=== PATIENT | female | born 1955 | race Caucasian/White ===

== ENCOUNTER → 2019-03-25 11:14 | Outpatient (CLI) | payer MEDICARE, SELFPAY ==
--- NOTE | ~2019-03-25 | MM_ITS ---
EXAMINATION: MM screening herbert BI w loco HISTORY: Screening mammogram, family history of breast cancer in her mother. TECHNIQUE: Craniocaudal and mediolateral oblique 3-D tomosynthesis images were obtained and synthetic 2-D images were generated. CAD analysis was submitted and interpreted. COMPARISON: 03/08/2018, 03/13/2017, 03/05/2016, 02/18/2015 BREAST PARENCHYMAL COMPOSITION: There are scattered areas of fibroglandular density. FINDINGS: Scattered benign-appearing calcifications are present. There is no evidence of suspicious m ass, calcification, or architectural distortion to suggest malignancy in either breast. There has bee n no suspicious interval change. IMPRESSION: 1. No mammographic evidence of malignancy. 2. Recommend routine screening mammography in one year. BI-RADS Category 2: Benign finding(s). Reviewed, dictated and finalized at location A. T SHOP HELPER
== END ==
PROVIDERS: Visit Provider Obstetrics & Gynecology
DX: Z12.31 Encounter for screening mammogram for malignant neoplasm of breast (principal)
CPT/HCPCS: 77063; 77067

== ENCOUNTER → 2020-06-19 11:07 | Outpatient (CLI) | payer MEDICARE, SELFPAY ==
--- NOTE | ~2020-06-19 | MM_ITS ---
EXAMINATION: MM screening herbert BI w loco HISTORY: Screening TECHNIQUE: Craniocaudal and mediolateral oblique 3-D tomosynthesis images were obtained and synthetic 2-D images were generated. CAD analysis was submitted and interpreted. COMPARISON: Comparison to multiple prior studies sequentially, with oldest reviewed study dated 01/18. BREAST PARENCHYMAL COMPOSITION: There are scattered areas of fibroglandular density. FINDINGS: There is no evidence of suspicious mass, calcification, or architectural distortion to sugg est malignancy in either breast. There has been no suspicious interval change. IMPRESSION: 1. No mammographic evidence of malignancy. 2. Recommend routine screening mammography in one year. BI-RADS Category 1: Negative Reviewed, dictated and finalized at location A.
== END ==
PROVIDERS: Visit Provider Obstetrics & Gynecology
DX: Z12.31 Encounter for screening mammogram for malignant neoplasm of breast (principal)
CPT/HCPCS: 77063; 77067

== ENCOUNTER 2021-02-07 10:52 | Outpatient (CLI) | payer MEDICARE, SELFPAY ==
--- NOTE | ~2021-02-07 | XR_ITS ---
XR hip LT min 2V 02/07/2021 11:19 Indication: Left hip pain Procedure: 2 views left hip Comparison: No prior studies for comparison. Findings: Mild osteoarthritis of the left hip. Sacral foramen are symmetric. No acute fracture or tra umatic malalignment. No significant soft tissue abnormality. Impression: 1: Mild osteoarthritis of the left hip. Reviewed, dictated and finalized at location A. RTMENT CHAIR Impression: 1: Mild osteoarthritis of the left hip.
--- NOTE | ~2021-02-07 | XR_ITS ---
XR lumbar spine 2-3V DATE: 02/07/2021 11:19 INDICATION: Back pain. No known injury. TECHNIQUE: AP, lateral, coned lateral lumbosacral views COMPARISON: 06/30/2012 lumbar spine FINDINGS: Surgical clips are again noted at the left anterior lumbar spine at L3-4. There is minimal dextroscoliosis of the lumbar spine. There is mild to moderate degenerative disc disease at L1-2 and L3-4, moderate to moderately severe d egenerative disease at L2-3, mild degenerative disc disease at L4-5. There is severe degenerative disease at L5-S1. No fracture or bone destruction. The lumbar pedicles are intact. Sacral iliac joints are intact. IMPRESSION: Multilevel degenerative disc disease, most pronounced at L5-S1 Reviewed, dictated and finalized at location B. TRICAL ACCESSORIES ASSEMBLER
== END 2021-02-07 10:53 | disposition home or self-care (01) ==
PROVIDERS: PCP Internal Medicine; Visit Provider Internal Medicine
DX: M25.552 Pain in left hip (principal); M54.9 Dorsalgia, unspecified; M51.37 Other intervertebral disc degeneration, lumbosacral region; M16.12 Unilateral primary osteoarthritis, left hip
CPT/HCPCS: 72100; 73502

== ENCOUNTER → 2021-07-19 12:28 | Outpatient (CLI) | payer MEDICARE, SELFPAY ==
--- NOTE | ~2021-07-19 | MM_ITS ---
EXAMINATION: MM screening herbert BI w loco HISTORY: Screening mammogram TECHNIQUE: Craniocaudal and mediolateral oblique 3-D tomosynthesis images were obtained and synthetic 2-D images were generated. CAD analysis was submitted and interpreted. COMPARISON: 06/19/2020, , 03/16/2018 bilateral screening mammogram examinations BREAST PARENCHYMAL COMPOSITION: There are scattered areas of fibroglandular density. FINDINGS: There is no evidence of suspicious mass, calcification, or architectural distortion to sugg est malignancy in either breast. There has been no suspicious interval change. IMPRESSION: 1. No mammographic evidence of malignancy. 2. Recommend routine screening mammography in one year. BI-RADS Category 1: Negative Reviewed, dictated and finalized at location A.
== END ==
PROVIDERS: PCP Obstetrics & Gynecology; Visit Provider Obstetrics & Gynecology
DX: Z12.31 Encounter for screening mammogram for malignant neoplasm of breast (principal)
CPT/HCPCS: 77063; 77067

== ENCOUNTER 2022-01-01 00:12 | Day surgery (SDC) | payer MEDICARE, SELFPAY ==
[2021-12-24 13:35] VITALS: BMI 26.7
[2022-01-01 08:34] VITALS: BP 132/75; PULSE 92; RESP 18; TEMP 36.6; O2SAT 99; BMI 26.7
[2022-01-01] MEDS: LACTATED RINGERS 1,000 ML 150 ML IV CONT (08:51)
[2022-01-01 08:55] LABS: Glucose Point of Care 142 mg/dl (65-105)
--- NOTE | 2022-01-01 08:55 | WPDANESEPPF ---
Anes - Initial Pre Proc Eval Procedure: Operation Date: 01/01/22 09:45 Proposed Procedures p Screening Colonoscopy - Ruperto Barahona MD Date/Time: 01/01/22 08:55 Surgeon: Ruperto Barahona MD Pre Op Diagnosis: hx colon polyp, fam hx colon CA Patient Data Age: 66 Gender: F Height: 1.7 m Weight: 77.5 kg Last Vital Signs Temp 97.8 F 01/01/22 08:34 Pulse 92 01/01/22 08:34 Resp 18 01/01/22 08:34 BP 132/75 01/01/22 08:34 Pulse Ox 99 01/01/22 08:34 O2 Del Method Room Air 01/01/22 08:34 Allergies Allergy/AdvReac Type Severity Reaction Status Date / Time Cephalosporins Allergy Mild Unknown Verified 01/01/22 08:33 Sulfa (Sulfonamide Allergy Mild Unknown Verified 01/01/22 08:33 Antibiotics) cephalexin Allergy Unknown unknown Verified 01/01/22 08:33 clarithromycin Allergy Unknown Unknown Verified 01/01/22 08:33 sulfamethizole Allergy Unknown Unknown Verified 01/01/22 08:33 sulfamethoxazole Allergy Unknown Unknown Verified 01/01/22 08:33 trimethoprim Allergy Unknown unknown Verified 01/01/22 08:33 vancomycin Allergy Unknown Unknown Verified 01/01/22 08:33 CEFOXITIN SODIUM Allergy Unknown Itching Uncoded 12/24/21 13:32 CEPHALEXIN MONOHYDRATE Allergy Unknown Itching Uncoded 12/24/21 13:32 Home Medications Medication Instructions Recorded Confirmed Type cholecalciferol (vitamin D3) 25 1,000 unit PO DAILY 01/20/19 01/01/22 History mcg (1,000 unit) capsule lancets (Microlet Lancet) #100 ea 10/24/20 01/01/22 Rx blood sugar diagnostic (Contour #50 ea 04/18/21 01/01/22 Rx Next Test Strips) atorvastatin 10 mg tablet 10 mg PO DAILY #90 tabs 12/26/21 01/01/22 Rx felodipine 10 mg tablet,extended 10 mg PO DAILY #90 tabs 12/26/21 01/01/22 Rx release 24 hr glimepiride 2 mg tablet 2 mg PO QAM #90 tabs 12/26/21 01/01/22 Rx lisinopril 20 1 tablet PO DAILY #90 tabs 12/26/21 01/01/22 Rx mg-hydrochlorothiazide 12.5 mg tablet metformin 500 mg tablet 500 mg PO BID #180 tabs 12/26/21 01/01/22 Rx Patient hx anesthesia problems: none Family hx anesthesia problems: none Results Review: All pre-operative results and documents have been reviewed as part of the pre-operative evaluation. [facility] Family History Family History Father Carcinoma of colon Family history of lung cancer, Onset Age: 59 Mother Family history of malignant neoplasm of breast in first degree relative Patient's mother is Other Hypertension Social History Social History Smoking status: Never smoker Second hand tobacco smoke exposure: No Alcohol intake: current Substance use type: does not use Living arrangements: with family Spiritual care concerns: No Anes - Eval Final PreProcedure Day of Procedure 01/01/22 08:55 Patient weight: normal Heart: regular rate and rhythm Lungs: clear to auscultation Airway: Mallampati scale class II Neurological: alert and oriented Last oral intake: >/= 8 hours ASA classification: III Emergent: no Anesthetic plan: proceed Anesthesia type and monitoring: general GIVS and standard monitoring Results Review: All pre-operative results and documents have been reviewed as part of the pre-operative evaluation. Informed Consent: The patient's anesthetic plan and its attendant risks and benefits were discussed with the patient/family/POA. Questions were solicited and answers provided to the satisfaction of the patient/family/POA.
--- NOTE | 2022-01-01 09:02 | PM.HPGS ---
History of Present Illness History of Present Illness Consent: Risks, benefits, and alternatives have been discussed and questions answered. Patient agrees to proceed with procedure. Chief complaint: hx colon polyp, fam hx colon CA Narrative: Renetta Coulter is a 66 year old female Presents for screening colonoscopy. Patient's family history is significant father had colon cancer. A brother has had colon polyps. Patient had a diminutive polyp that was fulgurated 5 years ago. She reports that her current weight appetite and bowel movements are normal. Patient denies abdominal pain. She has had no bleeding. Review of Systems Review of Systems: Review of systems noncontributory. [facility] Family History Family History Father Carcinoma of colon Family history of lung cancer, Onset Age: 59 Mother Family history of malignant neoplasm of breast in first degree relative Patient's mother is Other Hypertension Social History Social History Smoking status: Never smoker Second hand tobacco smoke exposure: No Alcohol intake: current Substance use type: does not use Living arrangements: with family Spiritual care concerns: No Meds Home Medications and Allergies Home Medications Medication Instructions Recorded Confirmed Type cholecalciferol (vitamin D3) 25 1,000 unit PO DAILY 01/20/19 01/01/22 History mcg (1,000 unit) capsule lancets (Microlet Lancet) #100 ea 10/24/20 01/01/22 Rx blood sugar diagnostic (Contour #50 ea 04/18/21 01/01/22 Rx Next Test Strips) atorvastatin 10 mg tablet 10 mg PO DAILY #90 tabs 12/26/21 01/01/22 Rx felodipine 10 mg tablet,extended 10 mg PO DAILY #90 tabs 12/26/21 01/01/22 Rx release 24 hr glimepiride 2 mg tablet 2 mg PO QAM #90 tabs 12/26/21 01/01/22 Rx lisinopril 20 1 tablet PO DAILY #90 tabs 12/26/21 01/01/22 Rx mg-hydrochlorothiazide 12.5 mg tablet metformin 500 mg tablet 500 mg PO BID #180 tabs 12/26/21 01/01/22 Rx Allergies Allergy/AdvReac Type Severity Reaction Status Date / Time Cephalosporins Allergy Mild Unknown Verified 01/01/22 08:33 Sulfa (Sulfonamide Allergy Mild Unknown Verified 01/01/22 08:33 Antibiotics) cephalexin Allergy Unknown unknown Verified 01/01/22 08:33 clarithromycin Allergy Unknown Unknown Verified 01/01/22 08:33 sulfamethizole Allergy Unknown Unknown Verified 01/01/22 08:33 sulfamethoxazole Allergy Unknown Unknown Verified 01/01/22 08:33 trimethoprim Allergy Unknown unknown Verified 01/01/22 08:33 vancomycin Allergy Unknown Unknown Verified 01/01/22 08:33 CEFOXITIN SODIUM Allergy Unknown Itching Uncoded 12/24/21 13:32 CEPHALEXIN MONOHYDRATE Allergy Unknown Itching Uncoded 12/24/21 13:32 Vital Signs Vital Signs - 24 hr 01/01/22 08:34 Temperature 97.8 F Pulse Rate 92 Respiratory Rate 18 Blood Pressure 132/75 Pulse Oximetry 99 Oxygen Delivery Room Air Exam Narrative: Physical exam reveals patient to be alert. Vital signs stable. HEENT exam is unremarkable. Patient is anicteric. Lungs are clear to auscultation and percussion. Heart is without murmur or extra sounds. Abdominal exam bowel sounds are present soft nontender with no organomegaly. Digital external rectal exam is normal. Assessment and Plan Assessment and plan (1) Family hx of colon cancer: Code(s): Z80.0 - Family history of malignant neoplasm of digestive organs Status: Acute Assessment and Plan: Patient's father had colon cancer. Patient's brother had colon polyps. Plan for patient to have surveillance colonoscopy at 5 year intervals. Further recommendations may be given after colonoscopy.
[2022-01-01 09:51] VITALS: BP 93/55; PULSE 67; RESP 22; O2SAT 99
[2022-01-01 10:01] VITALS: BP 99/60; PULSE 66; RESP 24; O2SAT 95
[2022-01-01 10:11] VITALS: BP 109/71; PULSE 68; RESP 17; O2SAT 98
== END 2022-01-01 10:19 | disposition home or self-care (01) ==
PROVIDERS: PCP Internal Medicine; Visit Provider Internal Medicine Gastroenterology
PROC: 0DJD8ZZ Inspection of Lower Intestinal Tract, Via Natural or Artificial Opening Endoscopic (ICD-10-PCS; CPT 45378; principal; 2022-01-01 09:45)
DX: Z12.11 Encounter for screening for malignant neoplasm of colon (principal); K64.8 Other hemorrhoids; K57.30 Diverticulosis of large intestine without perforation or abscess without bleeding; Z83.71 Family history of colonic polyps; Z80.0 Family history of malignant neoplasm of digestive organs; Z79.84 Long term (current) use of oral hypoglycemic drugs
CPT/HCPCS: G0105; 82948; J2704; J7120

== ENCOUNTER → 2022-08-07 14:00 | Outpatient (CLI) | payer MEDICARE, SELFPAY ==
--- NOTE | ~2022-08-07 | MM_ITS ---
EXAMINATION: MM screening herbert BI w loco HISTORY: Screening mammogram TECHNIQUE: Craniocaudal and mediolateral oblique 3-D tomosynthesis images were obtained and synthetic 2-D images were generated. CAD analysis was submitted and interpreted. COMPARISON: 07/19/2021, 06/19/2020, 03/25/2019 bilateral screening mammogram examinations BREAST PARENCHYMAL COMPOSITION: There are scattered areas of fibroglandular density. FINDINGS: 2.5 x 4.9 mm mass is noted in the mid to posterior outer aspect of the right breast. Diagno stic right mammogram and right breast ultrasound examination are recommended. Otherwise there is no evidence of suspicious mass, calcification, or architectural distortion to sugg est malignancy in either breast. Occasional bilateral benign calcifications. There has been no other suspicious interval change. IMPRESSION: 1. 2.5 x 4.9 mm mass in the outer right breast 2. Diagnostic right mammogram and right breast ultrasound examination are recommended. BI-RADS Category 0: Incomplete: Needs additional imaging evaluation. Reviewed, dictated and finalized at location A. IMPRESSION: 1. 2.5 x 4.9 mm mass in the outer right breast 2. Diagnostic right mammogram and right breast ultrasound examination are recom mended. BI-RADS Category 0: Incomplete: Needs additional imaging evaluation.
== END ==
PROVIDERS: PCP Obstetrics & Gynecology; Visit Provider Obstetrics & Gynecology
DX: Z12.31 Encounter for screening mammogram for malignant neoplasm of breast (principal); R92.8 Other abnormal and inconclusive findings on diagnostic imaging of breast
CPT/HCPCS: 77063; 77067

== ENCOUNTER → 2022-09-06 09:12 | Outpatient (CLI) | payer MEDICARE, SELFPAY ==
--- NOTE | ~2022-09-06 | MMUS_ITS ---
EXAMINATION: MM diagnostic herbert RT w loco, US breast RT limited HISTORY: Follow-up right breast mass TECHNIQUE: Additional 3-D tomosynthesis images of the right breast were performed and synthetic 2-D i mages were generated. CAD analysis was submitted and interpreted. High resolution Limited right breas t ultrasound was performed. COMPARISON: 08/07/2022 BREAST PARENCHYMAL COMPOSITION: Breast composed of scattered areas of fibroglandular density FINDINGS: MAMMOGRAPHIC FINDINGS: There is a small mass in the upper outer quadrant of the right breast, middle third which is partiall y obscured by fibroglandular tissue. ULTRASOUND: Limited right breast ultrasound: At 10:00, 3 cm from the nipple there is an oval 5 mm hypoechoic mass with parallel orientation, no posterior features and no internal vascularity. At 10:00, 6 cm from th e nipple there is a oval parallel oriented 3 mm hypoechoic mass with low level internal echoes, likel y benign. IMPRESSION: 1. Probable benign right breast masses. 2. Recommend 6 month follow-up diagnostic right mammogram and Limited ultrasound BI-RADS category 3, probably benign findings. Reviewed, dictated and finalized at location A. IMPRESSION: 1. Probable benign right breast masses. 2. Recommend 6 month follow-up diagnostic right mammogram and Limited ultrasoun d BI-RADS category 3, probably benign findings.
== END ==
PROVIDERS: PCP Internal Medicine; Visit Provider Obstetrics & Gynecology
DX: R92.8 Other abnormal and inconclusive findings on diagnostic imaging of breast (principal)
CPT/HCPCS: 76642; 77061; 77065; G0279

== ENCOUNTER → 2023-03-31 08:13 | Outpatient (CLI) | payer MEDICARE, SELFPAY ==
--- NOTE | ~2023-03-31 | MMUS_ITS ---
EXAMINATION: MM diagnostic herbert RT w loco, US breast RT limited HISTORY: Six-month follow-up for probably benign right breast masses TECHNIQUE: Craniocaudal, mediolateral, and mediolateral oblique 3-D tomosynthesis images of the right breast were performed and synthetic 2-D images were generated. CAD analysis was submitted and interp reted. High resolution limited right breast ultrasound was performed. COMPARISON: 09/06/2022, 08/07/2022, 07/19/2021, 06/19/2020 BREAST PARENCHYMAL COMPOSITION: There are scattered areas of fibroglandular density. FINDINGS: MAMMOGRAPHIC FINDINGS: There is a stable 4 mm oval, obscured, equal density mass in the posterior third of the upper-outer q uadrant of the breast at the 10:00 location, 7 cm from the nipple. There is been no suspicious interv al change. ULTRASOUND: There is a stable 3 mm x 2 mm oval, circumscribed, parallel, hypoechoic mass with no posterior featur es or internal vascularity at the 10:00 location, 5 cm from the nipple. A 4 mm x 2 mm mass with simil ar sonographic features is present at the 11:00 location, 7 cm from the nipple. IMPRESSION: 1. Stable, probably benign right breast masses. 2. Recommend 6 month follow-up bilateral diagnostic mammogram and right breast ultrasound. BI-RADS category 3, probably benign findings. Reviewed, dictated and finalized at location A. MORTISER OPERATOR IMPRESSION: 1. Stable, probably benign right breast masses. 2. Recommend 6 month follow-up bilateral diagnostic mammogram and right breast ultrasound. BI-RADS category 3, probably benign findings.
== END ==
PROVIDERS: PCP Internal Medicine; Visit Provider Obstetrics & Gynecology
DX: R92.8 Other abnormal and inconclusive findings on diagnostic imaging of breast (principal)
CPT/HCPCS: 76642; 77061; 77065; G0279

== ENCOUNTER 2023-08-06 09:30 | Outpatient (RCR) | payer MEDICARE, SELFPAY ==
[2023-06-25 09:37] VITALS: BMI 25.7
[2023-08-06 09:37] VITALS: BMI 25.2
== END 2023-09-15 09:31 | disposition home or self-care (01) ==
LOC: ANHDMC 09:30
PROVIDERS: PCP Internal Medicine; Visit Provider Internal Medicine
DX: E11.9 Type 2 diabetes mellitus without complications (principal); Z71.3 Dietary counseling and surveillance
CPT/HCPCS: 97802; 97803

== ENCOUNTER 2023-09-30 08:07 | Outpatient (CLI) | payer MEDICARE, SELFPAY ==
--- NOTE | ~2023-09-30 | MMUS_ITS ---
EXAMINATION: MM diagnostic herbert BI w loco, US breast RT limited HISTORY: Follow-up right breast mass TECHNIQUE: Additional 3-D tomosynthesis images of the breasts were performed and synthetic 2-D images were generated. CAD analysis was submitted and interpreted. High resolution Limited right breast ult rasound was performed. COMPARISON: Comparison to multiple prior studies sequentially, with oldest reviewed study dated 07/2019. BREAST PARENCHYMAL COMPOSITION: Not dense: There are scattered areas of fibroglandular density. FINDINGS: MAMMOGRAPHIC FINDINGS: The breasts are stable. No new masses, calcifications or architectural distortion in either breast to suggest malignancy. ULTRASOUND: Complete US of all 4 quadrants of the breast/s and retroareolar region was reviewed. At 10:00, 5 cm from the nipple there is no hypoechoic 4 mm mass, consistent with a cyst. At 11:00, 7 cm from the nipple there is an oval hypoechoic structure which may represent a focally prominent duct or complicated cysts, unchanged, measuring 3 mm. No new masses are identified. IMPRESSION: 1. Probable benign findings right breast. No evidence for malignancy in the left breast. 2. Recommend 6 month follow-up Limited right breast ultrasound BI-RADS category 3, probably benign findings. Reviewed, dictated and finalized at location B. IMPRESSION: 1. Probable benign findings right breast. No evidence for malignancy in the lef t breast. 2. Recommend 6 month follow-up Limited right breast ultrasound BI-RADS category 3, probably benign findings.
== END 2023-09-30 08:08 ==
LOC: MICIMG 08:08
PROVIDERS: PCP Internal Medicine; Visit Provider Obstetrics & Gynecology
DX: R92.8 Other abnormal and inconclusive findings on diagnostic imaging of breast (principal)
CPT/HCPCS: 76642; 77062; 77066; G0279

== ENCOUNTER 2024-01-01 09:08 | Emergency (ER) | payer MEDICARE, SELFPAY ==
[2024-01-01 09:20] VITALS: BP 157/80; PULSE 101; RESP 16; TEMP 36.9; O2SAT 99
--- NOTE | 2024-01-01 10:25 | ED.SKABFB ---
HPI - Skin/Abscess/Foreign Bdy General Chief complaint: Skin/Abscess/Foreign Body Stated complaint: Rash Time Seen by Provider: 01/01/24 09:25 Source: patient Mode of arrival: ambulatory Limitations: no limitations History of Present Illness HPI narrative: Renetta is a 68-year-old female patient presenting to the clinic today with complaints a rash on her abdomen and inner thighs. She reports rash started last night. The only thing that has changed history bob that she got her hair dyed yesterday. She denies any changes in soaps, shampoos, detergents, lotions, medications, or food. She denies being outdoors recently. She denies any shortness of breath, chest pain, drooling, tongue swelling, or difficulty breathing. Rash was itchy yesterday however it has improved today. Related Data Home Medications Medication Instructions Recorded Confirmed terbinafine HCl 250 mg tablet mg 01/01/24 Allergies Allergy/AdvReac Type Severity Reaction Status Date / Time Cephalosporins Allergy Mild Unknown Verified 01/01/24 09:21 Sulfa (Sulfonamide Allergy Mild Unknown Verified 01/01/24 09:21 Antibiotics) cephalexin Allergy Unknown unknown Verified 01/01/24 09:21 clarithromycin Allergy Unknown Unknown Verified 01/01/24 09:21 sulfamethizole Allergy Unknown Unknown Verified 01/01/24 09:21 sulfamethoxazole Allergy Unknown Unknown Verified 01/01/24 09:21 trimethoprim Allergy Unknown unknown Verified 01/01/24 09:21 vancomycin Allergy Unknown Unknown Verified 01/01/24 09:21 CEFOXITIN SODIUM Allergy Unknown Itching Uncoded 01/01/24 09:21 CEPHALEXIN MONOHYDRATE Allergy Unknown Itching Uncoded 01/01/24 09:21 Review of Systems Review of Systems: Pertinent positives per HPI. Patient denies any fever, chills, headache, visual changes, dizziness, cough, runny nose, sore throat, shortness of breath, chest pain, palpitations, nausea, vomiting, diarrhea, constipation, abdominal pain, or any urinary issues. [facility] Family History Family History Father Carcinoma of colon Family history of lung cancer, Onset Age: 59 Mother Family history of malignant neoplasm of breast in first degree relative Patient's mother is Other Hypertension Social History Social History Smoking status: Never smoker Second hand tobacco smoke exposure: No Alcohol intake: current Substance use type: does not use Lack of Transportation: No Lack of Food: Never True Current Housing: I Have Housing Concerned About Future Housing: No Difficulty Paying Gas/Electric Bills: No Difficulty Paying for Meds: No Currently Unemployed: No Education: High School Diploma/GED Difficulty w/ Childcare or Family Care: No Living arrangements: with family Spiritual care concerns: No Comments At the time of my signature, I reviewed and agree with the nursing past medical, surgical, social, and family history. There is no relevant family history pertinent to the patient complaint. Exam Narrative: General: Well-developed, well nourished, in no apparent distress Head: Normocephalic, atraumatic. Cardio: Regular rate and rhythm, s1 and s2 normal, no murmur appreciated. Resp: Clear to auscultation bilaterally, no rhonchi, rales, wheezing or rubs. Integumentary: [place], warm, and dry, red raised itchy hive-like rash to abdomen and inner thigh. Course Course Emergency Course: Portions of this record may have been created with voice recognition software. Level of Care: Express Care Visit Vital Signs Vital signs: Vital Signs Temperature 36.9 C 01/01/24 09:20 Pulse Rate 101 H 01/01/24 09:20 Respiratory Rate 16 01/01/24 09:20 Blood Pressure 157/80 H 01/01/24 09:20 Pulse Oximetry 99 01/01/24 09:20 Temperature 36.9 C 01/01/24 09:20 Pulse Rate 101 H 01/01/24 09:20 Respiratory Rate 16 01/01/24 09:20 Blood Pressure 157/80 H 01/01/24 09:20 Pulse Oximetry 99 01/01/24 09:20 Vital signs reviewed MDM - Skin/Abscess/Foreign Bdy MDM Narrative Medical decision making narrative: At the time of visit patient is resting comfortably on the exam table. Patient appears to be nontoxic. Plan: I suspect patient has acute hives. Prescription for Pepcid and prednisone taper dose was sent to the pharmacy. Supportive measures were discussed with the patient and they voiced understanding discharge instructions and agrees to treatment plan. Return precautions reviewed Differential Diagnosis Differential diagnosis: Likely abscess of skin or subcutaneous tissue, viral exanthem, dermatophytosis, urticaria, herpes zoster, allergic reaction to drug, cellulitis, eczema, insect bites, impetigo and contact dermatitis Discharge Plan Discharge Clinical Impression: Acute urticaria Patient Disposition: Home, Self-Care Condition: Stable Instructions: Antibiotic Form, Urticaria (ED) Additional Instructions: Keep a tight control on your blood sugar Take prednisone as directed Take Pepcid as prescribed Avoid hot showers Avoid any allergy triggers Avoid scratching as this can cause a secondary infection May take benadryl 25-50mg every 6 hours as needed for itching. Follow up with your PCP in 3-5 days if symptoms persist or sooner if they worsen Go to the Emergency Room if symptoms worsen- fever, rash spreading with treatment, shortness of breath, tongue swelling, drooling, or chest pain Prescriptions: New prednisone 10 mg tablet 10 mg PO DAILY Qty: 30 0RF Rx Instructions: 60mg po daily on day 1, 40mg po daily on days 2-4, 30mg po daily on days 5-6, 20mg po daily on days 7-8, 10mg po daily on days 9-10 famotidine [Pepcid] 40 mg tablet 40 mg PO DAILY 10 Days Qty: 10 0RF No Action terbinafine HCl 250 mg tablet (DME) lancets [Microlet Lancet] Misc See Rx Instructions .Route Qty: 100 3RF Rx Instructions: As directed- daily ergocalciferol (vitamin D2) 1,250 mcg (50,000 unit) capsule 50,000 unit PO MONTHLY Qty: 13 1RF lisinopril 40 mg tablet 40 mg PO DAILY Qty: 90 2RF hydrochlorothiazide 12.5 mg tablet 12.5 mg PO DAILY Qty: 90 2RF (DME) Contour Next Test Strips Strip See Rx Instructions .ROUTE .COMPLEX Qty: 100 2RF Dose Instruction: USE TO TEST BLOOD SUGAR ONCE DAILY DIRECTED Rx Instructions: USE TO TEST BLOOD SUGAR ONCE DAILY DIRECTED atorvastatin 10 mg tablet 10 mg PO DAILY Qty: 90 3RF metformin 500 mg tablet 500 mg PO BID Qty: 180 2RF glimepiride 2 mg tablet 2 mg PO QAM Qty: 90 2RF felodipine 10 mg tablet extended release 24 hr 10 mg PO DAILY Qty: 90 2RF pantoprazole 40 mg tablet,delayed release (DR/EC) See Rx Instructions .ROUTE .COMPLEX Qty: 45 1RF Dose Instruction: TAKE ONE TABLET (40MG) BY MOUTH EVERY MORNING Rx Instructions: TAKE ONE TABLET (40MG) BY MOUTH EVERY OTHER MORNING Follow-up/Referrals: Abisai Pulido APRN [Primary Care Provider] - Time of Disposition: 09:39 Quality NIHSS Nursing Documentation ED NIHSS nursing documentation: reviewed/agree
== END 2024-01-01 09:45 | disposition home or self-care (01) ==
PROVIDERS: Emergency Provider Nurse Practitioner Family; PCP Nurse Practitioner
DX: L50.9 Urticaria, unspecified (principal)
CPT/HCPCS: 99213; G0463

== ENCOUNTER 2024-04-01 08:15 | Outpatient (CLI) | payer MEDICARE, SELFPAY ==
--- NOTE | ~2024-04-01 | US_ITS ---
US breast RT limited 04/01/2024 08:44 Indication: Six-month follow-up right breast mass Procedure: High-resolution Limited ultrasound of the right breast Comparison: Ultrasound dated 09/30/2023 and 03/31/2023 Findings: No abnormality is identified at 11:00, 7 cm from the nipple. At 10:00, 5 cm from the nipple there is a 3 mm cyst. No suspicious sonographic abnormalities to suggest malignancy. Impression: 1: No sonographic evidence for malignancy. Routine yearly screening mammogram and regular clinical breast examination are recommended. BI-RADS CATEGORY 2 - BENIGN FINDINGS Reviewed, dictated and finalized at location [] UCTION MACHINE OPERATOR Impression: 1: No sonographic evidence for malignancy. Routine yearly screening mammogram and regular clinical breast examination are recommended. BI-RADS CATEGORY 2 - BENIGN FINDINGS
== END 2024-04-01 08:16 | disposition home or self-care (01) ==
LOC: MICIMG 08:15
PROVIDERS: PCP Nurse Practitioner; Visit Provider Obstetrics & Gynecology
DX: R92.8 Other abnormal and inconclusive findings on diagnostic imaging of breast (principal)
CPT/HCPCS: 76642